=== PATIENT | female | born 1975 | race American Indian/Alaskan Native ===

== ENCOUNTER 2021-09-08 06:20 | Emergency (ER) | payer SELFPAY ==
--- NOTE | 2021-09-08 12:49 | Emergency Department Report ---
ED General Adult HPI - General Chief complaint: High BP Stated complaint: HIGH BP Time Seen by Provider: 09/08/21 12:28 Source: patient Mode of arrival: Ambulatory Limitations: No Limitations - History of Present Illness Initial comments: 45-year-old female with known history of hypertension presents to the ER today with complaints of elevated blood pressure readings. Patient states that for the past 3 days her blood pressure has been running high. Highest measured temperature was 193/125. She reports associated headache and yesterday she had a brief episode of left arm pain but no chest pain. She states that was scared it was this morning when she woke up she felt confused but this was brief. She states that she did call EMS and they checked her blood pressure and it was still elevated. They offered to take her to the ER but she opted to go by private vehicle. Patient states that currently she does have a headache and just feels fatigued but currently denies any confusion, chest pain, shortness of breath, focal weakness, vision changes speech changes or any additional symptoms. Patient does take ramipril as well as HCTZ for hypertension. She states that she has been compliant with her medications. She states that her primary care doctor did decrease her dose of ramipril from 30 mg to 10 mg about 6 months ago. She states that the dose of her HCTZ 25 mg has remained the same. Complaint: Elevated blood pressure/headache/Fatigue -: Gradual, days(s) - Related Data Allergies Allergy/AdvReac Type Severity Reaction Status Date / Time No Known Allergies Allergy Verified 09/08/21 12:43 ED Review of Systems ROS: Stated complaint: HIGH BP Other details as noted in HPI Comment: All other systems reviewed and negative Constitutional: denies: chills, fever Eyes: denies: eye pain, eye discharge, vision change ENT: denies: ear pain, throat pain Respiratory: denies: cough, shortness of breath, wheezing Cardiovascular: denies: chest pain, palpitations Gastrointestinal: denies: abdominal pain, nausea, vomiting, diarrhea, constipation, hematemesis, melena, hematochezia Genitourinary: denies: urgency, dysuria, discharge Musculoskeletal: arthralgia Neurological: headache, confusion. denies: weakness, numbness, paresthesias, abnormal gait Psychiatric: denies: anxiety, depression, auditory hallucinations, visual hallucinations, homicidal thoughts, suicidal thoughts Hematological/Lymphatic: denies: easy bleeding, easy bruising, swollen glands ED Physical Exam - General Limitations: No Limitations General appearance: alert, in no apparent distress - Head Head exam: Present: atraumatic, normocephalic, normal inspection - Eye Eye exam: Present: normal appearance, PERRL, EOMI Pupils: Present: normal accommodation - ENT ENT exam: Present: normal exam, mucous membranes moist - Neck Neck exam: Present: normal inspection, full ROM. Absent: meningismus - Respiratory Respiratory exam: Present: normal lung sounds bilaterally. Absent: respiratory distress, wheezes, rales, rhonchi, stridor - Cardiovascular Cardiovascular Exam: Present: regular rate, normal rhythm, normal heart sounds - GI/Abdominal GI/Abdominal exam: Present: soft. Absent: distended, tenderness, guarding, rebound - Neurological Exam Neurological exam: Present: alert, oriented X3, CN II-XII intact, normal gait. Absent: motor sensory deficit - Expanded Neurological Exam Expanded Patient oriented to: Present: person, place, time Speech: Present: fluid speech Cranial nerves: EOM's Intact: Normal, Gag Reflex: Normal, Tongue Deviation: Normal, Facial Sensation: Normal Sensory exam: Upper Extremity Light Touch: Normal, Upper Extremity Temperature: Normal, Lower Extremity Light Touch: Normal, Lower Extremity Temperature: Normal Motor strength exam: RUE: 5, LUE: 5, RLE: 5, LLE: 5 Best Eye Response ([place]): (4) open spontaneously Best Motor Response ([place]): (6) obeys commands Best Verbal Response ([place]): (5) oriented [place] Total: 15 - Psychiatric Psychiatric exam: Present: normal affect, normal mood - Skin Skin exam: Present: intact ED Course Vital Signs 09/08/21 09/08/21 09/08/21 06:56 13:59 15:14 Temperature 98.9 F Pulse Rate 55 L 50 L 69 Respiratory 18 Rate Blood Pressure 188/125 167/102 Blood Pressure 151/92 [Right] O2 Sat by Pulse 99 Oximetry ED Medical Decision Making - Lab Data Result diagrams: 09/08/21 12:48 09/08/21 12:48 - EKG Data EKG shows normal: sinus rhythm Rate: normal (50) - EKG Data Interpretation: normal EKG, LVH - Radiology Data Radiology results: report reviewed Patient: MICHELLE MOODY MR#: [id number] 5 : 1975 Acct:[id number] Age/Sex: 45 / F ADM Date: 09/08/21 Loc: ED Attending Dr: Ordering Physician: BERNARD HAYES Date of Service: 09/08/21 Procedure(s): CT head/brain wo con Accession Number(s): [id number] cc: BERNARD HAYES CT BRAIN: 09/08/2021 INDICATION / CLINICAL INFORMATION: headache. COMPARISON: None available. FINDINGS: BRAIN/INTRACRANIAL STRUCTURES: Unenhanced CT images of the brain demonstrate no evidence of acute abnormality. Ventricles and sulci are normal in size and shape. There is no evidence of ischemic injury, hemorrhage, or mass. There are no abnormal extra-axial fluid collections. A prominent empty sella is noted. This is generally considered to be of no acute clinical significance. EXTRACRANIAL STRUCTURES: Unremarkable. IMPRESSION: No acute abnormality. All CT scans at this location are performed using dose reduction to ALARA by means of automated exposure control. Signer Name: Fabiano Ford MD Signed: 09/08/2021 1:10 PM Workstation Name: [id number] Transcribed By: PRAMOD Dictated By: Fabiano Ford MD Electronically Authenticated By: Fabiano Ford MD Signed Date/Time: 09/08/21 1310 DD/ 1309 TD/TT: - Medical Decision Making 1602: Labs reviiewed and no significant abnormality noted. CT head normal. EKG show some LVH but otherwsie NSR without STEMI or ichemic changes. Patient resting comfortably on bed. She is awake alert and oriented x3 with normal speech. She has no focal neuro deficits on exam. Her gait is normal. Her BP has improved after IV hydralazine. At this time I do not see an indication for admission, emergent neuro consult or additional work up. Discussed case with Andra Jones. He agreed with work and plan for discharged. Discussed all results with patient. Recommend she continue her ramipril but take 10mg BID until she can follow up with PCP. She was given TIA/CVA pre-cautions and she understands to return immediately to ED if worse. Critical care attestation.: If time is entered above; I have spent that time in minutes in the direct care of this critically ill patient, excluding procedure time. ED Disposition Clinical Impression: Uncontrolled hypertension, Headache Disposition: HOME / SELF CARE / HOMELESS Is pt being admited?: No Does the pt Need Aspirin: No Condition: Stable Instructions: Hypertension (ED), Managing Your Hypertension, Hypertension, Adult, [id number], Transient Ischemic Attack, [id number] Additional Instructions: I recommend taking the ramipril 10mg BID until you can follow up with your PCP. You can take tylenol or motrin. Also recommend baby aspirin daily. Return to ED if your symptoms worsens and you develop any speech changes, focal weakness or any other worsening or concerning symptoms. Referrals: PRIMARY CARE,MD [Primary Care Provider] - 3-5 Days Forms: Work/School Release Form(ED) Time of Disposition: 16:00
--- NOTE | 2021-09-08 13:14 | Cat Scan Report ---
CT BRAIN: 09/08/2021 INDICATION / CLINICAL INFORMATION: headache. COMPARISON: None available. FINDINGS: BRAIN/INTRACRANIAL STRUCTURES: Unenhanced CT images of the brain demonstrate no evidence of acute abn ormality. Ventricles and sulci are normal in size and shape. There is no evidence of ischemic injury, hemorrhage, or mass. There are no abnormal extra-axial fluid collections. A prominent empty sella is noted. This is generally considered to be of no acute clinical significanc e. EXTRACRANIAL STRUCTURES: Unremarkable. IMPRESSION: No acute abnormality. All CT scans at this location are performed using dose reduction to ALARA by means of automated expos ure control. Signer Name: Fabiano Ford MD Signed: 09/08/2021 1:10 PM Workstation Name: [id number]
[2021-09-08 13:33] LABS: Basophils % (Auto) 0.9 % (0.0-1.8); Eosinophils # (Auto) 0.1 K/mm3 (0.0-0.4); Eosinophils % (Auto) 2.5 % (0.0-4.3); Hematocrit 39.7 % (30.3-42.9); Hemoglobin 12.6 gm/dl (10.1-14.3); Lymphocytes # (Auto) 1.9 K/mm3 (1.2-5.4); Lymphocytes % (Auto) 33.8 % (13.4-35.0); Mean Corpuscular HGB Conc 32 % (30-34); Mean Corpuscular Volume 86 fl (79-97); Monocytes # (Auto) 0.4 K/mm3 (0.0-0.8); Monocytes % (Auto) 6.3 % (0.0-7.3); Platelet Count 254 K/mm3 (140-440); Red Blood Count 4.61 M/mm3 (3.65-5.03); Red Cell Distribution Width 14.1 % (13.2-15.2)
[2021-09-08] MEDS: hydrALAZINE 20 MG/1 ML INJ IV ONE (13:59)
[2021-09-08 15:15] VITALS: BP 151/92
[2021-09-08] MEDS: ACETAMINOPHEN 325 MG TAB PO ONE (15:49)
[2021-09-08 15:50] LABS: BUN/Creatinine Ratio 14; Blood Urea Nitrogen 11 mg/dL (7-17); Calcium 9.3 mg/dL (8.4-10.2)
[2021-09-08 15:51] LABS: Alanine Aminotransferase 9 units/L (7-56); Albumin 4.3 g/dL (3.9-5); Hemolysis Index 7
[2021-09-08] MEDS: KETOROLAC 30 MG/1 ML INJ IV ONE (16:05)
--- NOTE | 2021-09-10 12:08 | Electrocardiograph Report ---
[facility] Test Date: 2021-09-08 Test Time: 14:15:21 Pat Name: MICHELLE MOODY Department: Room: Gender: F Leasing Professional: LIZABETH : 1975 Requested By: BERNARD HAYES Order Number: [id number] Reading MD: William Patel Measurements Intervals [place] Rate: 50 P: 57 ID: [id number] QRS: 62 QRSD: 90 T: 56 QT: 445 QTc: 406 Interpretive Statements Sinus rhythm Consider left ventricular hypertrophy No previous ECG available for comparison Electronically Signed On 09-10-2021 12:07:37 EDT by William Patel
== END 2021-09-08 16:25 | disposition home or self-care (01) ==
LOC: ED 06:20
DX: I10 Essential (primary) hypertension (principal); R51.9 Headache, unspecified
CPT/HCPCS: 36415; 70450; 80053; 85025; 93005; 96374; 96375; 99284; J0360; J1885